=== PATIENT | female | born 1960 | race Caucasian/White ===

== ENCOUNTER → 2016-11-27 | Outpatient (CLI) | payer BC ==
[~2016-11-27] MED LIST: BUSPAR DIVIDOSE15 MG PO; LASIX 20MG TABL20 MG PO; PRILOTC; PROZAC 20MG20 MG PO; XANAX 1MG1 MG PO
== END ==
LOC: MC.RAD 07:00
DX: Z12.31 Encounter for screening mammogram for malignant neoplasm of breast (principal)

== ENCOUNTER → 2018-01-21 | Outpatient (CLI) | payer BC | LOC: MC.RAD 08:20 | DX: Z12.31 Encounter for screening mammogram for malignant neoplasm of breast (principal) ==

== ENCOUNTER → 2018-12-20 | Outpatient (CLI) | payer BC | LOC: COL.RAD 08:06 | DX: M79.645 Pain in left finger(s) (principal); M79.644 Pain in right finger(s) | CPT/HCPCS: J3301; Q9967 ==

== ENCOUNTER → 2019-06-02 | Outpatient (CLI) | payer BC | LOC: COL.RAD 08:07 | DX: M18.0 Bilateral primary osteoarthritis of first carpometacarpal joints (principal) | CPT/HCPCS: J3301; Q9967 ==

== ENCOUNTER → 2019-10-30 | Outpatient (CLI) | payer BC | LOC: COL.RAD 08:00 | DX: M79.645 Pain in left finger(s) (principal); M79.644 Pain in right finger(s) | CPT/HCPCS: J3301; Q9967 ==

== ENCOUNTER → 2020-02-12 | Outpatient (CLI) | payer BC | LOC: COL.RAD 09:00 | DX: M79.644 Pain in right finger(s) (principal); M79.645 Pain in left finger(s) | CPT/HCPCS: J3301; Q9967 ==

== ENCOUNTER → 2020-04-08 | Outpatient (CLI) | payer BC | LOC: MC.RAD 07:49 | DX: Z12.31 Encounter for screening mammogram for malignant neoplasm of breast (principal) ==

== ENCOUNTER → 2020-07-05 | Outpatient (CLI) | payer BC | LOC: COL.RAD 09:08 | DX: M79.644 Pain in right finger(s) (principal); M79.645 Pain in left finger(s) | CPT/HCPCS: J3301; Q9967 ==

== ENCOUNTER → 2020-11-04 | Outpatient (CLI) | payer BC | LOC: COL.RAD 13:08 | DX: M18.0 Bilateral primary osteoarthritis of first carpometacarpal joints (principal) | CPT/HCPCS: J3301; Q9967 ==

== ENCOUNTER → 2021-05-05 | Outpatient (CLI) | payer BC | LOC: MC.RAD 08:30 | DX: Z12.31 Encounter for screening mammogram for malignant neoplasm of breast (principal) ==

== ENCOUNTER → 2022-07-01 | Outpatient (CLI) | payer BC | LOC: MC.RAD 07:25 | DX: Z12.31 Encounter for screening mammogram for malignant neoplasm of breast (principal) ==

== ENCOUNTER → 2023-08-10 | Outpatient (CLI) | payer MEDICARE, BC ==
[~2023-08-10] MED LIST changes: +PRILOSEC 20MG20 MG PO
== END ==
LOC: CANSCHCLI → MC.RAD 07:04
DX: Z12.31 Encounter for screening mammogram for malignant neoplasm of breast (principal)

== ENCOUNTER → 2023-09-14 | Outpatient (CLI) | payer MEDICARE, BC | LOC: COL.CARD 07:57 | DX: R07.89 Other chest pain (principal) ==

== ENCOUNTER → 2023-09-17 | Outpatient (CLI) | payer MEDICARE, BC | LOC: COL.CARD 10:14 | DX: R07.89 Other chest pain (principal) | CPT/HCPCS: J7674 ==